=== PATIENT | male | born 2005 | race Caucasian/White ===

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

== ENCOUNTER 2024-08-20 20:44 | Emergency (ER) | payer OTHER ==
[2024-08-20 20:52] VITALS: BP 110/64; PULSE 84; RESP 16; TEMP 98.1; BMI 27.0
[2024-08-20] MEDS ORDERED: ACETAMINOPHEN 500 MG TABLET (FP) ONE (22:06)
[2024-08-20] MEDS: ACETAMINOPHEN 500 MG TABLET (FP) PO ONE (22:11)
[2024-08-20 23:59] LABS: THROAT:GRP A STREP NOT DETECTED (NOTDETECTED)
== END 2024-08-20 22:11 | disposition home or self-care (01) ==
LOC: FER 20:44
DX: J02.9 Acute pharyngitis, unspecified (principal); R05.9 Cough, unspecified; Z20.822 Contact with and (suspected) exposure to COVID-19
CPT/HCPCS: 0241U-QW; 87651; 99283-25